=== PATIENT | female | born 1940 | race Caucasian/White ===

== ENCOUNTER 2019-03-20 18:54 | Emergency (ER) | payer MEDICARE, BC ==
--- NOTE | 2019-03-20 19:26 | CR ---
[id number] RAD/RAD Wrist Left 3V Min EXAM: 3 VIEWS LEFT WRIST. INDICATION: PAIN COMPARISON: None. DISCUSSION: Acute impacted and angulated fracture of the distal right radius. The fracture involves the radiocarpal joint. Additionally there is a minimally displaced fracture of the ulnar styloid. No other fractures are identified. There is significant associated soft tissue edema. Moderate to advanced degenerative changes of the 1st carpometacarpal joint. Mild degenerative changes seen throughout the remainder of the left hand. IMPRESSION: 1. Acute fracture of the distal right radius and ulna as described above. Alexander Hollingsworth DO 03/20/19 1925 Thank you for allowing us to participate in the care of your patient.
--- NOTE | 2019-03-20 19:41 | EDM.PDOC ---
ED HPI GENERAL MEDICAL PROBLEM - General Chief Complaint: Upper Extremity Injury/Pain Stated Complaint: LEFT WRIST Injury Time Seen by Provider: 03/20/19 18:54 Source of Information: Reports: Patient History Limitations: Reports: No Limitations - History of Present Illness INITIAL COMMENTS - FREE TEXT/NARRATIVE: 78 YO WF presents to ER after trip and fall at home in her driveway. Pt reports her shoe was untied and she got tripped up on the shoe and fell on and outstretched hand. Pt complaining of left wrist pain. Pt denies any other injuries. Pt denies head injury or neck pain. Pt denies back pain or elbow pain. Pr without any abrasions, swelling or ecchymosis but has some mild deformity at the left wrist. 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 - Related Data Allergies Allergy/AdvReac Type Severity Reaction Status Date / Time codeine Allergy "FELT LIKE Verified 03/20/19 19:34 I WAS IN A FUZZY WORLD" Home Meds: Home Meds Aspirin [Halfprin] 81 mg PO BRK 04/05/16 [History] NIFEdipine [Procardia Xl] 30 mg PO DAILY 04/05/16 [History] atorvaSTATin [Lipitor] 20 mg PO DAILY 04/05/16 [History] Past Medical History HEENT History: Reports: Impaired Vision Cardiovascular History: Reports: Heart Murmur, High Cholesterol, Hypertension Genitourinary History: Reports: Urinary Incontinence 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: Dermatologic History: Reports: Cellulitis - Infectious Disease History Infectious Disease History: Reports: Chicken Pox, Mumps - Past Surgical History Female Surgical History: Reports: Hysterectomy, Salpingo-Oophorectomy Musculoskeletal Surgical History: Reports: Knee Replacement Social & Family History - Caffeine Use Caffeine Use: Reports: Coffee Review of Systems - Review of Systems Review Of Systems: See Below Constitutional: Reports: No Symptoms Eyes: Reports: No Symptoms Ears: Reports: No Symptoms Nose: Reports: No Symptoms Mouth/Throat: Reports: No Symptoms Respiratory: Reports: No Symptoms Cardiovascular: Reports: No Symptoms GI/Abdominal: Reports: No Symptoms Genitourinary: Reports: No Symptoms Musculoskeletal: Reports: Arm Pain Skin: Reports: No Symptoms Neurological: Reports: No Symptoms Psychiatric: Reports: No Symptoms ED EXAM, GENERAL - Physical Exam Exam: See Below Exam Limited By: No Limitations General Appearance: Alert, WD/WN, No Apparent Distress Eye Exam: Bilateral Eye: PERRL Head: Atraumatic, Normocephalic Neck: Normal Inspection, Supple, Non-Tender, Full Range of Motion Respiratory/Chest: No Respiratory Distress, Lungs Clear, Normal Breath Sounds, No Accessory Muscle Use, Chest Non-Tender Cardiovascular: Normal Peripheral Pulses, Regular Rate, Rhythm, No Edema, No Gallop, No JVD, No Murmur, No Rub GI/Abdominal: Normal Bowel Sounds, Soft, Non-Tender, No Organomegaly, No Distention, No Abnormal Bruit, No Mass Back Exam: Normal Inspection, Full Range of Motion, NT Extremities: No Pedal Edema, Normal Capillary Refill, Limited Range of Motion. No: Increased Warmth, Mottled, Pallor, Redness Neurological: Alert, Oriented, CN II-XII Intact, Normal Cognition, Normal Gait, Normal Reflexes, No Motor/Sensory Deficits Psychiatric: Normal Affect, Normal Mood Skin Exam: Warm, Dry, Intact, Normal Color, No Rash Lymphatic: No Adenopathy ED TRAUMA EXTREMITY PROCEDURES - Splinting Left Upper Extremity Pre-Procedure NV Status: Normal Post-Procedure NV Status: Normal Splint Material: Fiberglass Splint Design: Sugar Tong Applied & Form Fitted By: Provider Provider Post-Splint Application NV Check: NV Status Normal, Good Position Complications: No Course - Radiology Interpretation Free Text/Narrative:: left wrist- acute fracture of distal radius and ulnar styloid Departure - Departure Time of Disposition: 19:43 Disposition: Home, Self-Care 01 Condition: Good Clinical Impression: Fracture of radius and ulna Qualifiers: Encounter type: initial encounter Fracture type: closed Laterality: left Qualified Code(s): S52.92XA - Unspecified fracture of left forearm, initial encounter for closed fracture; S52.202A - Unspecified fracture of shaft of left ulna, initial encounter for closed fracture - Discharge Information Instructions: Wrist Fracture Treated With Immobilization, [id number], Cast or Splint Care, Adult, [id number] Referrals: Ciarra Euceda PA-C [Primary Care Provider] - Gregory Foote MD [Ordering Only Provider] - Forms: ED Department Discharge Additional Instructions: 1. discharge home 2. rest/ice/elevation/sugar tong splint 3. follow up with ortho for further evaluation and treatment 4. ultram 50mg PO Q6 PRN #10 for pain 5. return to ER for worsening symptoms - Assessment/Plan Assessment:: 1. Left distal radius fracture- impacted and mildly angulated 2. ulnar styloid fracture to left wrist Plan: 1. discharge home 2. rest/ice/elevation/sugar tong splint 3. follow up with ortho for further evaluation and treatment 4. ultram 50mg PO Q6 PRN #10 for pain 5. return to ER for worsening symptoms
[2019-03-20] MEDS ORDERED: traMADol 50 MG Tab PO ONE (19:44)
[2019-03-20 21:13] VITALS: BP 150/78; PULSE 70
== END 2019-03-20 20:10 | disposition home or self-care (01) ==
LOC: KA.ED 18:54
DX: S52.202A Unspecified fracture of shaft of left ulna, initial encounter for closed fracture (principal); S52.612A Displaced fracture of left ulna styloid process, initial encounter for closed fracture; I10 Essential (primary) hypertension; E78.00 Pure hypercholesterolemia, unspecified; Z79.82 Long term (current) use of aspirin; Z79.899 Other long term (current) drug therapy; Z88.5 Allergy status to narcotic agent; W19.XXXA Unspecified fall, initial encounter; Y92.009 Unspecified place in unspecified non-institutional (private) residence as the place of occurrence of the external cause
CPT/HCPCS: 29125; 73110; 99283; A9270; 29105

== ENCOUNTER 2020-08-26 14:18 | Emergency (ER) | payer MEDICARE, BC ==
[2020-08-26 14:27] VITALS: BP 135/74; PULSE 76
--- NOTE | 2020-08-26 15:17 | EDM.PDOC ---
ED HPI GENERAL MEDICAL PROBLEM - General Chief Complaint: Lower Extremity Injury/Pain Stated Complaint: RIGHT ANKLE PAIN Time Seen by Provider: 08/26/20 14:40 Source of Information: Reports: Patient History Limitations: Reports: No Limitations - History of Present Illness INITIAL COMMENTS - FREE TEXT/NARRATIVE: 79 old female with complaints of injury to her right ankle. She believes she twisted her ankle yesterday. She felt immediate pain in the ankle. She has been having difficulty weightbearing. She has no swelling about the ankle. She notes most of the tenderness is laterally. She comes in for further evaluation. Onset Date: 08/25/20 Duration: Hour(s):, Constant Location: Reports: Lower Extremity, Right Quality: Reports: Ache Severity: Moderate Improves with: Reports: Rest Worsens with: Reports: Movement (And ambulation) Associated Symptoms: Reports: No Other Symptoms Right Ankle Pain Score (Numeric/FACES): 8 - Related Data Allergies Allergy/AdvReac Type Severity Reaction Status Date / Time codeine Allergy "FELT LIKE Verified 08/26/20 14:29 I WAS IN A FUZZY WORLD" Home Meds: Home Meds Aspirin [Halfprin] 81 mg PO BRK 04/05/16 [History] NIFEdipine [Procardia Xl] 30 mg PO DAILY 04/05/16 [History] atorvaSTATin [Lipitor] 20 mg PO DAILY 04/05/16 [History] Past Medical History HEENT History: Reports: Impaired Vision Cardiovascular History: Reports: Heart Murmur, High Cholesterol, Hypertension Genitourinary History: Reports: Urinary Incontinence 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: Dermatologic History: Reports: Cellulitis - Infectious Disease History Infectious Disease History: Reports: Chicken Pox, Mumps - Past Surgical History Cardiovascular Surgical History: Reports: None Female Surgical History: Reports: Hysterectomy, Salpingo-Oophorectomy Endocrine Surgical History: Reports: Parathyroidectomy Musculoskeletal Surgical History: Reports: Knee Replacement Social & Family History - Tobacco Use Tobacco Use Status *Q: Never Tobacco User - Caffeine Use Caffeine Use: Reports: Coffee - Recreational Drug Use Recreational Drug Use: No Review of Systems - Review of Systems Review Of Systems: Comprehensive ROS is negative, except as noted in HPI. ED EXAM, GENERAL - Physical Exam Exam: See Below Exam Limited By: No Limitations General Appearance: Alert, WD/WN, No Apparent Distress Throat/Mouth: Normal Voice, No Airway Compromise Head: Atraumatic Neck: Normal Inspection Respiratory/Chest: No Respiratory Distress Extremities: Pedal Edema, Joint Swelling, Limited Range of Motion, Other (Patient has no bone tenderness to palpation along the medial or lateral ankle. She has no tenderness along the medial ankle gutter or deltoid ligament. She is tender over the lateral ankle gutter at the ATF and CF ligament. She has increased discomfort laterally with pronation and supination of her foot she has no bony tenderness in the foot midfoot metatarsals or toes. There is swelling in her foot. There is no ecchymosis. She has intact sensation to light touch. Continuity of the Achilles is felt throughout the gastroc muscle into the Achilles insertion with good pushoff strength. 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 Findings include advanced changes in the first MTP articulation with bulky osteophyte formation and joint space narrowing. No evidence of fracture in the foot or ankle. There is soft tissue swelling in the lower leg extending in the foot and ankle. Findings are nonspecific Departure - Departure Time of Disposition: 15:12 Disposition: Home, Self-Care 01 Condition: Good Clinical Impression: Right ankle sprain Qualifiers: Encounter type: initial encounter Involved ligament of ankle: calcaneofibular ligament Qualified Code(s): S93.411A - Sprain of calcaneofibular ligament of right ankle, initial encounter - Discharge Information Instructions: Ankle Sprain, [id number] Referrals: Ciarra Euceda PA-C [Primary Care Provider] - Forms: ED Department Discharge Additional Instructions: 1. Cam walker boot. Should wear at all times with the exception of bathing and sleeping at night. 2. Weight-bear as tolerated. We will provide you Tubigrip stocking to help for swelling.. 3. R. I. C. E., Rest, ice, compression, elevation for the first 72 hours 4. Ibuprofen 800 mg 3 times daily for pain and swelling as needed. Should be taken with food. 5. You may benefit from the use of a walker or cane for ambulation during this time. 6. Follow up Ciarra Euceda PAC in 2 weeks for clinical check if still no improvement would repeat x-rays. 7. Would recommend beginning physical therapy in 2 weeks for range of motion and strengthening. Sepsis Event Note (ED) - Evaluation Sepsis Screening Result: No Definite Risk - Focused Exam Vital Signs: Vital Signs Temp Pulse Resp BP Pulse Ox 08/26/20 14:25 97.9 F 76 16 135/74 96 - My Orders Last 24 Hours: My Active Orders 08/26/20 14:29 Ankle Min 3V Rt [CR] Stat - Assessment/Plan Last 24 Hours: My Active Orders 08/26/20 14:29 Ankle Min 3V Rt [CR] Stat Assessment:: 1. Right Ankle Sprain Plan: 1. Cam walker boot. Should wear at all times with the exception of bathing and sleeping at night. 2. Weight-bear as tolerated. We will provide you Tubigrip stocking to help for swelling.. 3. R. I. C. E., Rest, ice, compression, elevation for the first 72 hours 4. Ibuprofen 800 mg 3 times daily for pain and swelling as needed. Should be taken with food. 5. You may benefit from the use of a walker or cane for ambulation during this time. 6. Follow up Ciarra Euceda PAC in 2 weeks for clinical check if still no improvement would repeat x-rays. 7. Would recommend beginning physical therapy in 2 weeks for range of motion and strengthening.
--- NOTE | 2020-08-26 15:30 | CR ---
[id number] RAD/RAD Foot Right 2V; [id number] RAD/RAD Ankle Right 3V Min Exam: RAD Ankle Right 3V Min, RAD Foot Right 2V Indication:RIGHT ANKLE PAIN AND SWELLING. Comparison: No prior imaging for comparison. 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 Findings including advanced changes at the 1st MTP articulation with bulky osteophyte formation and joint space narrowing. No evidence of fracture in the foot or ankle. There is soft tissue swelling in the lower leg extending into the foot and ankle. Findings are nonspecific. Arturo Mccray MD 08/26/20 1528 Thank you for allowing us to participate in the care of your patient.
== END 2020-08-26 15:15 | disposition home or self-care (01) ==
LOC: KA.ED 14:18
DX: S93.411A Sprain of calcaneofibular ligament of right ankle, initial encounter (principal); E78.00 Pure hypercholesterolemia, unspecified; I10 Essential (primary) hypertension; Z79.82 Long term (current) use of aspirin; Z79.899 Other long term (current) drug therapy; Z88.5 Allergy status to narcotic agent; X50.1XXA Overexertion from prolonged static or awkward postures, initial encounter
CPT/HCPCS: 73610-RT; 73620-RT; 99283

== ENCOUNTER 2021-02-14 10:21 | Day surgery (SDC) | payer MEDICARE, BC ==
[~2021-02-14 10:21] MED LIST: Sodium Chloride 0.9% 10 ML Syringe FLUSH PRN
[2021-02-14] MEDS ORDERED: Propofol 200 MG/20 ML SDV IV ONE (10:22)
[2021-02-14] MEDS ORDERED: Propofol 200 MG/20 ML SDV ONE ×2 (11:17→12:40)
[2021-02-14] MEDS: Lactated Ringers 1,000 ML IV SCH (11:26)
[2021-02-14 11:35] LABS: CORONAVIRUS COVID-19 RAPID NEGATIVE (NEGATIVE)
--- NOTE | 2021-02-14 13:54 | PCM.OPNOTE ---
- General Post-Op/Procedure Note Date of Surgery/Procedure: 02/14/21 Operative Procedure(s): Colonoscopy and polypectomy Findings: A small polyp was identified. A 65 cm from the anal margin. This was removed using a biopsy forceps. A resolution clip was placed to prevent postoperative bleeding. Rest of the colonoscopy was normal. Pre Op Diagnosis: . History of colon polyps. Post-Op Diagnosis: Polyp at 65 second images. Otherwise negative colonoscopy. Anesthesia Technique: MAC Primary Surgeon: Christie Ch Complications: None Condition: Good Free Text/Narrative:: Preoperative diagnosis: History of colon polyps. For Repeat colonoscopy. Postoperative diagnosis: As above. Polyp of the colon at 65 cm. Procedure performed: Colonoscopy and polypectomy. Informed consent was obtained, the patient regarding this procedure. All possible competitions were thoroughly discussed. Patient understands and wishes to proceed. Complication including infection, perforation, pain, etc. In case of perforation, open operation, bowel resection, and even were discussed. The patient decided to proceed. Continuous EKG and oximetry monitoring and intermittent blood pressure and respiratory monitoring were performed throughout the procedure. An Olympus video colonoscope was introduced in the rectum and slowly advanced to the ileocecal junction. Water and air were used to keep the colon open. The scope was slowly withdrawn. A small polyp was identified at 65 cm. This was removed using the hot biopsy forceps and a resolution clip was placed to prevent any postoperative bleeding. A few diverticula were seen in the sigmoid colon. The scope was withdrawn into the rectum. Retroflexion technique was employed and showed a couple of hemorrhoids at the 3:00 and 7:00 positions. The scope was straightened and withdrawn. The patient tolerated the procedure well. There were no competitions. She was transferred to the recovery room in excellent condition.
[2021-02-14 14:31] VITALS: BP 113/57; PULSE 70
== END 2021-02-14 14:54 | disposition home or self-care (01) ==
LOC: KA.SDS 10:21
PROVIDERS: ATTEND Family Medicine
DX: Z12.11 Encounter for screening for malignant neoplasm of colon (principal); D12.6 Benign neoplasm of colon, unspecified; K64.9 Unspecified hemorrhoids; I10 Essential (primary) hypertension; E78.00 Pure hypercholesterolemia, unspecified; E66.9 Obesity, unspecified; E21.3 Hyperparathyroidism, unspecified; Z01.812 Encounter for preprocedural laboratory examination; Z20.822 Contact with and (suspected) exposure to COVID-19; Z79.899 Other long term (current) drug therapy; Z88.5 Allergy status to narcotic agent; Z90.49 Acquired absence of other specified parts of digestive tract; Z98.890 Other specified postprocedural states; Z68.33 Body mass index [BMI] 33.0-33.9, adult
CPT/HCPCS: 00812; 88305; J2704; J7120; U0002